=== PATIENT | male | born 2000 | race Caucasian/White ===

== ENCOUNTER 2018-01-06 05:26 | Emergency (ER) | payer MEDICAID, OTHER ==
[~2018-01-06 05:26] MED LIST: Z.0.NO CURRENT MEDS
[2018-01-06 05:31] VITALS: BP 115/71; PULSE 120; RESP 16; TEMP 97.8; O2SAT 98
[2018-01-06] MEDS ORDERED: SODIUM CHLOR 0.9% 1000 ML INJ 1,000 ML IV ONE (05:40)
--- NOTE | 2018-01-06 05:44 | PD ---
HPI Chief Complaint: Psychiatric Symptoms Time Seen by Provider: 05:39 Travel History International Travel<30 days: No Contact w/Intl Traveler<30days: No Traveled to known affect area: No History of Present Illness HPI Patient is a 17-year-old male presenting to emerge department for psychiatric evaluation under Daniel act. Patient states that his best friend is always trying to get with his girlfriends. He states his girlfriend cheated on him which caused him to be more depressed and suicidal. He reports a previous suicide attempt 2-3 weeks ago. He states he has cut himself in the past and an attempt to commit suicide. Patient admitted that he harmed himself with a knife and told his mother that he was going to kill himself several weeks ago. Patient took 2 2 mg Xanax tablets over an hour ago, he also drank a bottle of grecia between 9 PM and 11 PM. Patient has no physical complaints at this time. He denies any homicidal ideations. He denies any hallucinations. [facility] Past Medical History Depression: Yes Diminished Hearing: No Immunizations Current: Yes Migraines: Yes (familial) Social History Alcohol Use: No Tobacco Use: No Substance Use: No Allergies-Medications (Allergen,Severity, Reaction): Coded Allergies: No Known Allergies (Verified Allergy, Mild, 10/23/07) Reported Meds & Prescriptions Reported Meds & Active Scripts Active No Active Prescriptions or Reported Medications Review of Systems Except as stated in HPI: all other systems reviewed are Neg Psychiatric: Positive: Depression, Suicidal Ideations, Substance Abuse Physical Exam Narrative GENERAL: Thin, well-developed, alert male. Presenting in no acute distress. SKIN: Warm and dry. HEAD: Atraumatic. Normocephalic. EYES: Pupils equal and round. No scleral icterus. No injection or drainage. ENT: No nasal bleeding or discharge. Mucous membranes pink and moist. NECK: Trachea midline. No JVD. CARDIOVASCULAR: Tachycardic RESPIRATORY: No accessory muscle use. Clear to auscultation. Breath sounds equal bilaterally. GASTROINTESTINAL: Abdomen soft, non-tender, nondistended. Hepatic and splenic margins not palpable. MUSCULOSKELETAL: Extremities without clubbing, cyanosis, or edema. No obvious deformities. NEUROLOGICAL: Awake and alert. No obvious cranial nerve deficits. Motor grossly within normal limits. Five out of 5 muscle strength in the arms and legs. Normal speech. PSYCHIATRIC: Depressed mood and affect; insight and judgment normal. Data Data Last Documented VS Vital Signs Date Time Temp Pulse Resp B/P (MAP) Pulse Ox O2 Delivery O2 Flow Rate FiO2 01/06/18 05:31 97.8 120 16 115/71 (86) 98 Orders Orders Complete Blood Count With Diff (01/06/18 05:40) Comprehensive Metabolic Panel (01/06/18 05:40) Urinalysis - C+S If Indicated (01/06/18 05:40) Iv Access Insert/Monitor (01/06/18 05:40) Ecg Monitoring (01/06/18 05:40) Oximetry (01/06/18 05:40) Psych Screen (01/06/18 05:40) Sodium Chloride 0.9% Flush (Ns Flush) (01/06/18 05:45) Sodium Chlor 0.9% 1000 Ml Inj (Ns 1000 M (01/06/18 05:40) Drug Screen, Random Urine (01/06/18 05:40) Alcohol (Ethanol) (01/06/18 05:40) Salicylates (Aspirin) (01/06/18 05:40) Tylenol (Acetaminophen) (01/06/18 05:40) Chest, Single Ap (01/06/18 ) Hand, Complete ([id number]) (01/06/18 ) Labs Laboratory Tests Test 01/06/18 05:39 Blood Urea Nitrogen 16 MG/DL Creatinine 1.01 MG/DL Random Glucose 89 MG/DL Total Protein 8.2 GM/DL Albumin 4.7 GM/DL Calcium Level 9.1 MG/DL Alkaline Phosphatase 112 U/L Aspartate Amino Transf (AST/SGOT) 20 U/L Alanine Aminotransferase (ALT/SGPT) 19 U/L Total Bilirubin 0.7 MG/DL Sodium Level 145 MEQ/L Potassium Level 3.6 MEQ/L Chloride Level 108 MEQ/L Carbon Dioxide Level 26.5 MEQ/L Anion Gap 11 MEQ/L Estimat Glomerular Filtration Rate 95 ML/MIN Acetaminophen Level LESS THAN 2.0 MCG/ML Ethyl Alcohol Level 68 MG/DL MDM Medical Decision Making Medical Screen Exam Complete: Yes Emergency Medical Condition: Yes Interpretation(s) Vital Signs Date Time Temp Pulse Resp B/P (MAP) Pulse Ox O2 Delivery O2 Flow Rate FiO2 5/20/18 05:31 97.8 120 16 115/71 (20) 88 Differential Diagnosis Mood disorder versus substance abuse versus intoxication versus metabolic abnormality versus other Narrative Course Patient is a 17-year-old male presenting under Daniel act for psychiatric evaluation. Patient is mildly tachycardic on arrival, likely secondary to intoxication, IV access will be establishing patient will receive IV fluids. Patient will be placed on telemetry monitoring continuous pulse oximetry. Mental health screening discussed with the patient. Psychiatric screen ordered. Care of patient transferred to [facility] Scripts No Active Prescriptions or Reported Meds Eileen Clancy January 06, 2018 05:44
[2018-01-06] MEDS ORDERED: SODIUM CHLORIDE 0.9% FLUSH 10 ML FLUSH IVF PRN (05:45)
[2018-01-06 06:16] LABS: ALBUMIN 4.7 GM/DL (3.4-5.0); ALT (GPT) 19 U/L (9-52); AST (GOT) 20 U/L (15-39); BICARBONATE 26.5 MEQ/L (21.0-32.0); BLOOD UREA NITROGEN 16 MG/DL (7-18); CALCIUM 9.1 MG/DL (8.5-10.1); CHLORIDE 108 MEQ/L (98-107); CREATININE 1.01 MG/DL (0.60-1.30); GLOMERULAR FILTRATION RATE 95 ML/MIN (>89); GLUCOSE,RANDOM 89 MG/DL (74-106); SODIUM (NA) 145 MEQ/L (136-145)
[2018-01-06 06:18] LABS: ALKALINE PHOSPHATASE 112 U/L (45-117); TOTAL BILIRUBIN ADULT 0.7 MG/DL (0.2-1.0); TOTAL PROTEIN 8.2 GM/DL (6.4-8.2)
[2018-01-06 06:32] LABS: ACETAMINOPHEN LESS THAN 2.0 MCG/ML (10.0-30.0)
--- NOTE | 2018-01-06 06:47 | RADRPT ---
EXAM DATE/TIME: 01/06/2018 06:08 [facility] COMPARISON: No previous studies available for comparison. INDICATIONS : Pain and swelling after punching a wall. Patient states he punched a wall last week and hurt his hand . MEDICAL HISTORY : None. SURGICAL HISTORY : None. ENCOUNTER: Initial ACUITY: 1 day PAIN SCORE: 10/10 LOCATION: Right Hand. FINDINGS: Three view examination of the right hand demonstrates no dislocation, or fracture. The carpal bones appear intact. The interphalangeal and metacarpophalangeal joints are intact. Bony mineralization is normal. CONCLUSION: 1. No acute bony abnormality. Soft tissue swelling of the hand over the metacarpal region. Rodolfo Cedeño MD on January 06, 2018 at 6:45 Board Certified Radiologist. This report was verified electronically.
--- NOTE | 2018-01-06 06:50 | RADRPT ---
EXAM DATE/TIME: 01/06/2018 06:21 [facility] COMPARISON: No previous studies available for comparison. INDICATIONS : Chest pain. MEDICAL HISTORY : None. SURGICAL HISTORY : None. ENCOUNTER: Initial ACUITY: 1 day PAIN SCORE: 08/29 LOCATION: Bilateral chest FINDINGS: A single view of the chest demonstrates the lungs to be symmetrically aerated without evidence of mas s, infiltrate or effusion. The cardiomediastinal contours are unremarkable. Osseous structures are intact. CONCLUSION: 1. No active disease. Rodolfo Cedeño MD on January 06, 2018 at 6:48 Board Certified Radiologist. This report was verified electronically.
[2018-01-06 07:21] LABS: AUTOMATED NEUTROPHIL # 5.4 TH/MM3 (1.8-7.7); BASOPHIL # 0.1 TH/MM3 (0-0.2); BASOPHIL % 0.5 % (0.0-2.0); EOSINOPHIL # 0.2 TH/MM3 (0-0.4); EOSINOPHIL % 1.9 % (0.0-4.0); HEMATOCRIT 43.9 % (39.0-51.0); HEMOGLOBIN 15.1 GM/DL (13.0-17.0); LYMPHOCYTE # 2.9 TH/MM3 (1.0-4.8); MEAN CELL VOLUME 83.5 FL (80.0-100.0); MEAN CORPUSCULAR HEMOGLOBIN 28.7 PG (27.0-34.0); MEAN CORPUSCULAR HGB CONC 34.4 % (32.0-36.0); MEAN PLATELET VOLUME 9.4 FL (7.0-11.0); MONO % 8.7 % (0.0-8.0); MONOCYTE # 0.8 TH/MM3 (0-0.9); NEUT % 57.9 % (16.0-70.0); PLATELET COUNT 307 TH/MM3 (150-450); RED BLOOD COUNT 5.26 MIL/MM3 (4.50-5.90); RED CELL DISTRIBUTION WIDTH 13.8 % (11.6-17.2); WHITE BLOOD COUNT 9.3 TH/MM3 (4.0-11.0)
--- NOTE | 2018-01-06 09:47 | PD ---
Physical Exam Time Seen by Provider: 09:46 Narrative See MARKOS Rendon initial note for history and physical. Data Data Last Documented VS Vital Signs Date Time Temp Pulse Resp B/P (MAP) Pulse Ox O2 Delivery O2 Flow Rate FiO2 01/06/18 05:31 97.8 120 16 115/71 (86) 98 Orders Orders Complete Blood Count With Diff (01/06/18 05:40) Comprehensive Metabolic Panel (01/06/18 05:40) Urinalysis - C+S If Indicated (01/06/18 05:40) Iv Access Insert/Monitor (01/06/18 05:40) Ecg Monitoring (01/06/18 05:40) Oximetry (01/06/18 05:40) Psych Screen (01/06/18 05:40) Sodium Chloride 0.9% Flush (Ns Flush) (01/06/18 05:45) Sodium Chlor 0.9% 1000 Ml Inj (Ns 1000 M (01/06/18 05:40) Drug Screen, Random Urine (01/06/18 05:40) Alcohol (Ethanol) (01/06/18 05:40) Salicylates (Aspirin) (01/06/18 05:40) Tylenol (Acetaminophen) (01/06/18 05:40) Chest, Single Ap (01/06/18 ) Hand, Complete ([id number]) (01/06/18 ) Diet Regular Basic (01/06/18 Breakfast) Labs Laboratory Tests Test 01/06/18 05:39 White Blood Count 9.3 TH/MM3 Red Blood Count 5.26 MIL/MM3 Hemoglobin 15.1 GM/DL Hematocrit 43.9 % Mean Corpuscular Volume 83.5 FL Mean Corpuscular Hemoglobin 28.7 PG Mean Corpuscular Hemoglobin Concent 34.4 % Red Cell Distribution Width 13.8 % Platelet Count 307 TH/MM3 Mean Platelet Volume 9.4 FL Neutrophils (%) (Auto) 57.9 % Lymphocytes (%) (Auto) 31.0 % Monocytes (%) (Auto) 8.7 % Eosinophils (%) (Auto) 1.9 % Basophils (%) (Auto) 0.5 % Neutrophils # (Auto) 5.4 TH/MM3 Lymphocytes # (Auto) 2.9 TH/MM3 Monocytes # (Auto) 0.8 TH/MM3 Eosinophils # (Auto) 0.2 TH/MM3 Basophils # (Auto) 0.1 TH/MM3 CBC Comment DIFF FINAL Differential Comment Blood Urea Nitrogen 16 MG/DL Creatinine 1.01 MG/DL Random Glucose 89 MG/DL Total Protein 8.2 GM/DL Albumin 4.7 GM/DL Calcium Level 9.1 MG/DL Alkaline Phosphatase 112 U/L Aspartate Amino Transf (AST/SGOT) 20 U/L Alanine Aminotransferase (ALT/SGPT) 19 U/L Total Bilirubin 0.7 MG/DL Sodium Level 145 MEQ/L Potassium Level 3.6 MEQ/L Chloride Level 108 MEQ/L Carbon Dioxide Level 26.5 MEQ/L Anion Gap 11 MEQ/L Estimat Glomerular Filtration Rate 95 ML/MIN Salicylates Level 4.1 MG/DL Acetaminophen Level LESS THAN 2.0 MCG/ML Ethyl Alcohol Level 68 MG/DL MDM Supervised Visit with NOA: No Narrative Course See MARKOS Rendon initial note for history and physical. Lab results are unremarkable. patient medically cleared for psychiatric evaluation and disposition. Diagnosis Primary Impression: Medical clearance for psychiatric admission Scripts No Active Prescriptions or Reported Meds Condition: Stable Angela Silva January 06, 2018 09:47
[2018-01-06 10:49] VITALS: BP 123/72; PULSE 88; TEMP 98.1; O2SAT 99
[2018-01-06 11:47] LABS: BILIRUBIN, URINE NEGATIVE (NEG); BLOOD, URINE NEG (NEG); GLUCOSE,URINE NEG (NEG); KETONE, URINE NEG (NEG); NITRITE,URINE NEG (NEG); URINE COLOR YELLOW (YELLW/STRAW); URINE LEUKOCYTE ESTERASE NEGATIVE (NEG)
[2018-01-06 11:48] LABS: MUCUS URINE FEW /lpf (OCC)
--- NOTE | 2018-01-06 12:28 | PD ---
History of Present Illness Chief Complaint: Psychiatric Symptoms Time Seen by Provider: 11:30 Travel History International Travel<30 Days: No Contact w/Intl Traveler<30days: No Known affected area: No History of Present Illness: Patient is a 17-year-old male who was placed under a Daniel act by the [facility]'s department. Daniel act states." Raf Gudino stated that he was depressed because his father is not in his life and he is going through relationship problems with his girlfriend. Kalyani inform deputies he no longer wants to live and frequently contemplate suicide. Raf's mother, Katrin Rivera, advise Raf armed himself with kitchen knives and threatened to kill himself." Per patient he was at a green party last night and found out that his best friend was having sex with his ex-girlfriend. He states he was drinking, but just sipping drinks because he was at a green party and everyone else was drinking. He states that he is also struggling because he has no "father image " in his life to help him talk about things that are happening as he is growing up. He states he was in therapy 7 years ago when his father went to nursing home , but he has had no therapy since. He states that he has anger issues and knows he is bipolar. He also endorses that he is depressed. He states that yesterday he did make suicidal comments because he was upset about his ex-girlfriend, but today he denies any SI/HI. He is remorseful about the situation and getting "out of control" with his mother. He states that he usually resorts to breathing techniques to get himself under control, but they were not working yesterday. He states he has the following symptoms: poor concentration, anger , aggression, racing thoughts, insomnia and periods where he is hyperactive and feels he can do anything. He currently is not under treatment for they symptoms that he has described. On arrival alcohol level was 68. UDS positive for benzodiazepines and cannabis. Chart reviewed and patient discussed with DION Tran. Patient is in a hospital gown in [facility]. He is well groomed and looks his stated age. Alert and oriented x 4. Fund of knowledge good. Attention and concentration is fair. He is logical and recognizes his behaviors. He has good insight and judgement. He is depressed and affect is flat/blunted. Denies SI/HI. Collateral : I spoke with his mother, Katrin Rivera, . She states that Raf has been stressing out about a female relationship. He came home last night and told her he had been drinking and found his ex-girlfriend with his best friend. She states that his behavior escalated and that he took a kitchen knife and talked about harming himself. She has talked to him today and she feels that he is grounded and more reasonable. She called the police because she feared that he could hurt himself. She feels that is is safe to take him home, but she endorses that his mood swings have increased and she feels that at times he is almost manic. She feels that he needs to be treated and is willing to take him to [facility] in the morning during the walk in hours. Based on the patient's presentation and the mother's collateral, I will lift the Daniel Act. Patient is at low risk for self-harm and is willing to go to [facility] in the morning for treatment. He currently does not meet admission criteria. Dx: Bipolar, Depressive type; Cannabis Use PFSH Past Medical History Depression: Yes Diminished Hearing: No Immunizations Current: Yes Migraines: Yes (familial) Psychiatric History Psychiatric History Patient did see a therapist 7 years ago when his father went to nursing home. Has had no other psychiatric care. Social History Hx Alcohol Use: No Hx Tobacco Use: No Hx Substance Use: No Allergies-Medications (Allergen,Severity, Reaction): Coded Allergies: No Known Allergies (Verified Allergy, Mild, 10/23/07) Reported Meds & Prescriptions Reported Meds & Active Scripts Active No Active Prescriptions or Reported Medications Mental Status Examination Appearance: Appropriate, Well dressed/well groomed Consciousness: Alert Orientation: x4 Motor Activity: Normal gait Speech: Unremarkable Language: Adequate Fund of Knowledge: Adequate Attention and Concentration: Adequate Memory: Unremarkable Affect: Flat, Blunt Thought Process & Associations: Intact Thought Content: Appropriate Hallucination Type: None Delusion Type: None Suicidal Ideation: No Suicidal Plan: No Suicidal Intention: No Homicidal Ideation: No Homicidal Plan: No Homicidal Intention: No Insight: Adequate Judgment: Adequate [facility] Medical Decision Making Medical Record Reviewed: Yes Assessment/Plan Patient is a 17 y/o male who was placed under a Daniel Act because his mother called concerned for her son's safety. Mother and patient collaborate that patient was at a green party and saw his ex-girlfriend with his best friend. He returned home and became irrational and took a kitchen knife stating he should harm himself. The patient endorses that he is not suicidal and more rational today. He does ask this provider for help in treating his bipolar symptoms. He states that he is unable to handle his mood swings and racing thoughts. He is struggling with concentration and sleeping. He is willing to go to [facility] in the morning for assessment and treatment. His mother is very supportive and she told me that she will take him to [facility]. Based on patient's presentation and the mother's input will lift the Daniel Act. He is at low risk for self harm or harming others. Patient will follow up with [facility] in the morning. Orders Orders Complete Blood Count With Diff (01/06/18 05:40) Comprehensive Metabolic Panel (01/06/18 05:40) Urinalysis - C+S If Indicated (01/06/18 05:40) Iv Access Insert/Monitor (01/06/18 05:40) Ecg Monitoring (01/06/18 05:40) Oximetry (01/06/18 05:40) Psych Screen (01/06/18 05:40) Sodium Chloride 0.9% Flush (Ns Flush) (01/06/18 05:45) Sodium Chlor 0.9% 1000 Ml Inj (Ns 1000 M (01/06/18 05:40) Drug Screen, Random Urine (01/06/18 05:40) Alcohol (Ethanol) (01/06/18 05:40) Salicylates (Aspirin) (01/06/18 05:40) Tylenol (Acetaminophen) (01/06/18 05:40) Chest, Single Ap (01/06/18 ) Hand, Complete ([id number]) (01/06/18 ) Diet Regular Basic (01/06/18 Breakfast) Results Vital Signs Date Time Temp Pulse Resp B/P (MAP) Pulse Ox O2 Delivery O2 Flow Rate FiO2 01/06/18 10:49 98.1 88 123/72 (89) 99 01/06/18 05:31 97.8 120 16 115/71 (86) 98 Laboratory Tests Test 01/06/18 05:39 01/06/18 10:40 White Blood Count 9.3 Red Blood Count 5.26 Hemoglobin 15.1 Hematocrit 43.9 Mean Corpuscular Volume 83.5 Mean Corpuscular Hemoglobin 28.7 Mean Corpuscular Hemoglobin Concent 34.4 Red Cell Distribution Width 13.8 Platelet Count 307 Mean Platelet Volume 9.4 Neutrophils (%) (Auto) 57.9 Lymphocytes (%) (Auto) 31.0 Monocytes (%) (Auto) 8.7 Eosinophils (%) (Auto) 1.9 Basophils (%) (Auto) 0.5 Neutrophils # (Auto) 5.4 Lymphocytes # (Auto) 2.9 Monocytes # (Auto) 0.8 Eosinophils # (Auto) 0.2 Basophils # (Auto) 0.1 CBC Comment DIFF FINAL Differential Comment Blood Urea Nitrogen 16 Creatinine 1.01 Random Glucose 89 Total Protein 8.2 Albumin 4.7 Calcium Level 9.1 Alkaline Phosphatase 112 Aspartate Amino Transf (AST/SGOT) 20 Alanine Aminotransferase (ALT/SGPT) 19 Total Bilirubin 0.7 Sodium Level 145 Potassium Level 3.6 Chloride Level 108 Carbon Dioxide Level 26.5 Anion Gap 11 Estimat Glomerular Filtration Rate 95 Salicylates Level 4.1 Acetaminophen Level LESS THAN 2.0 Ethyl Alcohol Level 68 Urine Color YELLOW Urine Turbidity CLEAR Urine pH 7.0 Urine Specific [place] 1.010 Urine Protein NEG Urine Glucose (UA) NEG Urine Ketones NEG Urine Occult Blood NEG Urine Nitrite NEG Urine Bilirubin NEGATIVE Urine Urobilinogen LESS THAN 2.0 Urine Leukocyte Esterase NEGATIVE Urine WBC LESS THAN 1 Urine Mucus FEW Microscopic Urinalysis Comment CULT NOT INDICATED Urine Opiates Screen NEG Urine Barbiturates Screen NEG Urine Amphetamines Screen NEG Urine Benzodiazepines Screen POS Urine Cocaine Screen NEG Urine Cannabinoids Screen POS Diagnosis Primary Impression: Bipolar 2 disorder, major depressive episode Additional Impression: Suicidal ideation Prescriptions No Active Prescriptions or Reported Meds Disposition: 01 DISCHARGE HOME Condition: Stable Problem Qualifiers Lucy Davidson January 06, 2018 12:27
--- NOTE | 2018-01-06 12:30 | PD ---
Physical Exam Time Seen by Provider: 12:29 RODRIGUE Hodge, has evaluated the patient, lifted the Daniel act and cleared the patient for discharge. Data Data Last Documented VS Vital Signs Date Time Temp Pulse Resp B/P (MAP) Pulse Ox O2 Delivery O2 Flow Rate FiO2 01/06/18 10:49 98.1 88 123/72 (89) 99 01/06/18 05:31 16 Orders Orders Complete Blood Count With Diff (01/06/18 05:40) Comprehensive Metabolic Panel (01/06/18 05:40) Urinalysis - C+S If Indicated (01/06/18 05:40) Iv Access Insert/Monitor (01/06/18 05:40) Ecg Monitoring (01/06/18 05:40) Oximetry (01/06/18 05:40) Psych Screen (01/06/18 05:40) Sodium Chloride 0.9% Flush (Ns Flush) (01/06/18 05:45) Sodium Chlor 0.9% 1000 Ml Inj (Ns 1000 M (01/06/18 05:40) Drug Screen, Random Urine (01/06/18 05:40) Alcohol (Ethanol) (01/06/18 05:40) Salicylates (Aspirin) (01/06/18 05:40) Tylenol (Acetaminophen) (01/06/18 05:40) Chest, Single Ap (01/06/18 ) Hand, Complete ([id number]) (01/06/18 ) Diet Regular Basic (01/06/18 Breakfast) Diet Regular Basic (01/06/18 Lunch) Ed Discharge Order (01/06/18 12:30) Labs Laboratory Tests Test 01/06/18 05:39 01/06/18 10:40 White Blood Count 9.3 TH/MM3 Red Blood Count 5.26 MIL/MM3 Hemoglobin 15.1 GM/DL Hematocrit 43.9 % Mean Corpuscular Volume 83.5 FL Mean Corpuscular Hemoglobin 28.7 PG Mean Corpuscular Hemoglobin Concent 34.4 % Red Cell Distribution Width 13.8 % Platelet Count 307 TH/MM3 Mean Platelet Volume 9.4 FL Neutrophils (%) (Auto) 57.9 % Lymphocytes (%) (Auto) 31.0 % Monocytes (%) (Auto) 8.7 % Eosinophils (%) (Auto) 1.9 % Basophils (%) (Auto) 0.5 % Neutrophils # (Auto) 5.4 TH/MM3 Lymphocytes # (Auto) 2.9 TH/MM3 Monocytes # (Auto) 0.8 TH/MM3 Eosinophils # (Auto) 0.2 TH/MM3 Basophils # (Auto) 0.1 TH/MM3 CBC Comment DIFF FINAL Differential Comment Blood Urea Nitrogen 16 MG/DL Creatinine 1.01 MG/DL Random Glucose 89 MG/DL Total Protein 8.2 GM/DL Albumin 4.7 GM/DL Calcium Level 9.1 MG/DL Alkaline Phosphatase 112 U/L Aspartate Amino Transf (AST/SGOT) 20 U/L Alanine Aminotransferase (ALT/SGPT) 19 U/L Total Bilirubin 0.7 MG/DL Sodium Level 145 MEQ/L Potassium Level 3.6 MEQ/L Chloride Level 108 MEQ/L Carbon Dioxide Level 26.5 MEQ/L Anion Gap 11 MEQ/L Estimat Glomerular Filtration Rate 95 ML/MIN Salicylates Level 4.1 MG/DL Acetaminophen Level LESS THAN 2.0 MCG/ML Ethyl Alcohol Level 68 MG/DL Urine Color YELLOW Urine Turbidity CLEAR Urine pH 7.0 Urine Specific [place] 1.010 Urine Protein NEG mg/dL Urine Glucose (UA) NEG mg/dL Urine Ketones NEG mg/dL Urine Occult Blood NEG Urine Nitrite NEG Urine Bilirubin NEGATIVE Urine Urobilinogen LESS THAN 2.0 MG/DL Urine Leukocyte Esterase NEGATIVE Urine WBC LESS THAN 1 /hpf Urine Mucus FEW /lpf Microscopic Urinalysis Comment CULT NOT INDICATED Urine Opiates Screen NEG Urine Barbiturates Screen NEG Urine Amphetamines Screen NEG Urine Benzodiazepines Screen POS Urine Cocaine Screen NEG Urine Cannabinoids Screen POS MDM Supervised Visit with NOA: No Narrative Course RODRIGUE Ennis, has evaluated the patient, lifted the Daniel act and cleared the patient for discharge. The patient's mother is coming to pick him up and she is taking him to see a psychiatrist tomorrow. Patient contracts safety. Denies suicidal or homicidal ideations. Patient will be provided community resource packet to [facility] for follow-up. Has friends and family for support. Patient was medically cleared by alternate provider prior to psych screening. Patient has been evaluated by psychiatry and and is now cleared for discharge. Diagnosis Primary Impression: Bipolar 2 disorder, major depressive episode Referrals: [facility] (Out patient) [facility] Primary Care Physician Psychiatrist [facility] Patient Instructions: Bipolar Disorder (ED), General Instructions Additional Instruction: Contract safety to your self and others Follow-up with psychiatry Follow-up with primary care provider Follow-up with [facility] Return to the emergency department immediately with worsening of symptoms Med/Other Pt SpecificInfo: No Change to Meds, No Meds Exist/No RX given Scripts No Active Prescriptions or Reported Meds Disposition: 01 DISCHARGE HOME Condition: Stable Angela Silva January 06, 2018 12:30
== END 2018-01-06 14:27 | disposition home or self-care (01) ==
LOC: NEPD 05:26 → NEPJ 14:27
DX: F31.81 Bipolar II disorder (principal); F13.90 Sedative, hypnotic, or anxiolytic use, unspecified, uncomplicated; F12.90 Cannabis use, unspecified, uncomplicated; Z72.89 Other problems related to lifestyle
CPT/HCPCS: 71045; 73130; 80053; 80307; 81001; 85025; 99284; J7030